=== PATIENT | female | born 1995 | race Caucasian/White ===

== ENCOUNTER → 2021-06-23 11:37 | Outpatient (BNVA) | payer BC, MEDICAID, SELFPAY | PROVIDERS: PCP Nurse Practitioner Family; Visit Provider Nurse Practitioner Family | DX: Z20.822 Contact with and (suspected) exposure to COVID-19 (principal); J06.9 Acute upper respiratory infection, unspecified | CPT/HCPCS: 87635 ==

== ENCOUNTER 2023-05-06 14:41 | Outpatient (CLI) | payer BC, MEDICAID, SELFPAY ==
[2023-05-06] VITALS (9 sets, daily range): BP systolic 113–119; BP diastolic 67–74; PULSE 44–78; RESP 16; BMI 31.6
[2023-05-06] MEDS: lactated ringers 1,000 ML 999 ML IV (15:28)
[2023-05-06 15:33] LABS: Add Urine Microscopic? NO; Charge for UA Resulting for Rev
[2023-05-06 15:36] LABS: Basophils % 0.2 %; Eosinophils # 0.1 10^3/uL (0.0-0.8); Eosinophils % 0.4 %; Hematocrit 33.4 % (37.0-47.0); Lymphocytes # 1.9 10^3/uL (0.8-4.8); Mean Corpuscular HGB Conc 32.9 g/dL (30.0-36.0); Mean Corpuscular Hemoglobin 28.6 pg (28.0-34.0); Mean Corpuscular Volume 86.8 fl (81-99); Mean Platelet Volume 9.8 fL (7.4-10.4); Monocytes # 0.8 10^3/uL (0.2-0.9); Monocytes % 6.3 %; Neutrophils # 9.92 10^3/uL (1.8-7.7); Neutrophils % 77.7 %; Nucleated Red Blood Cells % 0 %; Platelet Count 308 10^3/cmm (130-400); Red Blood Count 3.85 10^6/uL (4.1-5.3); White Blood Count 12.8 10^3/uL (4.0-10.0)
[2023-05-06 15:41] LABS: Protein Urine Neg (Negative); Specific Gravity, Urine 1.005 (1.005-1.030); Urine Appearance Clear (CLEAR); Urine Color Yellow (Yellow); pH Urine 8 (5-7)
[2023-05-06 15:42] LABS: Bilirubin Urine Neg (Negative); Blood Urine Neg (Negative); Glucose Urine UA Norm (Normal); Ketones Urine Negative (Negative); Leukocyte Esterase Urine Negative (Negative); Nitrate Urine Negative (Negative); Sulfosalicylic Acid Urine Negative (Negative); Urobilinogen Urine 1 mg/dL (Negative)
[2023-05-06 15:47] LABS: Amphetamines Screen Urine Negative (Negative); Barbiturates Screen Urine Negative (Negative); Benzodiazepines Screen Urine Negative (Negative); Cocaine Screen Urine Negative (Negative); Opiate Screen Urine Negative (Negative); PCP Screen Urine Negative (Negative); THC Screen Urine Negative (Negative)
[2023-05-06 15:59] LABS: Alanine Aminotransferase < 5 U/L (0-33); Albumin Level 3.2 g/dL (3.5-5.2); Alkaline Phosphatase 121 U/L (35-105); Anion Gap 12.7 (5-19); Aspartate Amino Transferase 10 U/L (0-32); Blood Urea Nitrogen 5 mg/dL (6-20); Calcium 8.3 mg/dL (8.5-10.5); Carbon Dioxide 23 mmol/L (22-29); Chloride 103 mmol/L (98-107); Globulin 3.1 g/dL (1.3-4.6); Glucose 89 mg/dL (65-115); Osmolality Calculated 277 mOsm/kg (285-295); Potassium 3.7 mmol/L (3.5-5.1); Sodium 135 mmol/L (136-145); Total Bilirubin 0.2 mg/dL (0.15-1.2); Total Protein 6.3 g/dL (6.6-8.7); Uric Acid 3.4 mg/dL (2.4-5.7)
[2023-05-06 16:00] LABS: Urine Creatinine 212 mg/dL (28-217); Urine Protein Random 17 mg/dL
[2023-05-06 16:01] LABS: Magnesium Level (OB Only) 1.9 mg/dL (5.0-7.5)
[2023-05-06 16:02] LABS: UPRO/UCREAT Ratio 0.08 mg/mg CR
== END 2023-05-06 16:25 | disposition home or self-care (01) ==
LOC: OPOB 14:47 → OBGYN 14:49
PROVIDERS: Family Medicine; PCP Nurse Practitioner Family; Visit Provider Family Medicine
DX: O26.899 Other specified pregnancy related conditions, unspecified trimester (principal); R51.9 Headache, unspecified; Z3A.00 Weeks of gestation of pregnancy not specified; H53.8 Other visual disturbances
CPT/HCPCS: 36415; 80053; 80306; 81003; 82570; 83735; 84156; 84550; 85025; 99211; J7120

== ENCOUNTER 2023-07-04 21:08 | Emergency (ER) | payer BC, MEDICAID, SELFPAY ==
[2023-07-04 21:15] VITALS: BP 120/76; PULSE 93; RESP 18; TEMP 36.7; O2SAT 97
--- NOTE | 2023-07-04 21:31 | ECG_ITS ---
[facility] Test Date: 2023-07-04 Pat Name: Margaret Ashton Department: Room: Gender: Female Educational Coordinator: : 1995 Requested By: Chacho Klein Order Number: [id number] Ghislaine MD: Nelson Kitchen M.D. Measurements Intervals [place] Rate: 66 P: 12 DE: 164 QRS: 26 QRSD: 86 T: 35 QT: 375 QTc: 394 Interpretive Statements SINUS RHYTHM WITH MARKED SINUS ARRHYTHMIA Compared to ECG 11/01/2017 22:08:28 Sinus tachycardia no longer present T-wave abnormality no longer present Electronically Signed On 07-05-2023 0:08:14 CDT by Nelson Kitchen M.D. [id number]
[2023-07-04 21:49] LABS: Basophils # 0.1 10^3/uL (0.0-0.1); Basophils % 0.5 %; Eosinophils # 0.2 10^3/uL (0.0-0.8); Eosinophils % 1.6 %; Hematocrit 35.6 % (36-47); Lymphocytes # 2.4 10^3/uL (0.8-4.8); Lymphocytes % 21.2 %; Mean Corpuscular HGB Conc 32.3 g/dL (30-55); Mean Corpuscular Volume 83.6 fl (85-98); Mean Platelet Volume 9.2 fL (7.4-10.4); Monocytes # 0.8 10^3/uL (0.2-0.9); Monocytes % 7.2 %; Neutrophils # 7.85 10^3/uL (1.8-7.7); Neutrophils % 69.3 %; Nucleated Red Blood Cells % 0 %; Platelet Count 390 10^3/cmm (157-399); Red Blood Count 4.26 10^6/uL (3.85-5.65); Red Cell Distribution Width 12.6 % (12.1-15.1); White Blood Count 11.32 10^3/uL (3.29-11.43)
--- NOTE | 2023-07-04 22:05 | W.ED.ABDPA2 ---
HPI - Abdominal Pain General: Chief Complaint: Abdominal Pain Stated Complaint: ABD Pain\Blurred Vision Time Seen by Provider: 07/04/23 21:27 History of Present Illness: Patient presents to the ER with complaints of bilateral lower abdominal pain right worse than left started 2 days ago. Patient 6 weeks out from . Incision has healed nicely. Patient saw her PCP today and urine samples were obtained and they were normal so she sent the patient over here for CT scan to rule out appendicitis. Review of Systems General: Reports: 10 or more systems reviewed and unremarkable except in HPI and below PFSH ED PFSH: Medical History Dental caries Major depressive disorder Physical Exam Const: COMMON NORMALS: no acute distress, average body habitus, patient oriented x3, no limitations, healthy appearing, alert and well nourished HENMT: COMMON NORMALS: normocephalic, atraumatic, hearing grossly normal bilaterally, external ears normal, Normal external nose present and moist oral mucous membranes HEAD & SCALP: normocephalic and atraumatic NOSE: Normal external nose present EXTERNAL EAR: Yes external ears normal Eye: COMMON NORMALS: Equal, round and reactive pupils present, EOMs intact bilaterally, conjunctivae normal and no scleral icterus CONJUNCTIVA: Yes conjunctivae normal PUPIL: Yes Equal, round and reactive pupils present Neck/C-Spine: COMMON NORMALS: full ROM, no lymphadenopathy, supple, no meningeal signs, no JVD and Thyroid normal THYROID: Thyroid normal Chest: COMMONS NORMALS: normal inspection of the chest and normal palpation of entire chest wall Resp: COMMON NORMALS: normal respiratory effort, No retractions, No use of accessory muscles and clear to auscultation bilaterally AUSCULTATION: clear to auscultation bilaterally Cardio: COMMON NORMALS: no JVD, regular rate, regular rhythm, S1 normal heart sound present, S2 normal heart sound present, No gallops present (Cardio), No clicks present (Cardio), No murmurs present (Cardio) and No rub (Cardio) RATE: regular rate RHYTHM: regular rhythm HEART SOUNDS: S1 normal heart sound present and S2 normal heart sound present GI: COMMON NORMALS: Normal to inspection, nondistended, normoactive bowel sounds present, Soft to palpation and No hepatosplenomegaly present; negative for non-tender (Tender to palpate bilateral lower quadrants right greater than left) PALPATION: Yes Soft to palpation and Yes No hepatosplenomegaly present : COMMON NORMALS: Yes no CVA tenderness BLADDER/KIDNEY EXAM: Yes no CVA tenderness Back/Pelvis: COMMON NORMALS: no CVA tenderness Neuro: COMMON NORMALS: patient oriented x3 SENSORIUM/ORIENTATION: Yes alert MENINGEAL SIGNS: Yes no meningeal signs Course Vital Signs: Vital signs: Vital Signs Temperature 98.0 F 07/04/23 21:15 Pulse Rate 93 07/04/23 21:15 Respiratory Rate 18 07/04/23 21:15 Blood Pressure 120/76 07/04/23 21:15 Pulse Oximetry 97 07/04/23 21:15 Oxygen Delivery Me thod Room Air 07/04/23 21:15 MDM - Abdominal Pain Medical Decision Making Patient was sent over here to rule out appendicitis. Lab work was obtained as well as CT scan all of which was essentially normal. Patient did declined to have CT contrast dye with her CT but her appendix was still well visualized. Patient be discharged home with a diagnosis of abdominal pain. Lab Data 07/04/23 21:41 07/04/23 21:41 Labs/Radiology: Radiology Impressions Abdomen/Pelvis CT 07/04/23 23:04 IMPRESSION: 1. No acute abdominopelvic findings. 2. Normal appendix Laboratory Results WBC 11.32 10^3/uL (3.29-11.43) 07/04/23 21:41 RBC 4.26 10^6/uL (3.85-5.65) 07/04/23 21:41 Hgb 11.50 g/dL (11.27-16.99) 07/04/23 21:41 Hct 35.6 % (36-47) L 07/04/23 21:41 MCV 83.6 fl (85-98) L 07/04/23 21:41 MCH 27.0 pg (27-33) 07/04/23 21:41 MCHC 32.3 g/dL (30-55) 07/04/23 21:41 RDW 12.6 % (12.1-15.1) 07/04/23 21:41 Plt Count 390 10^3/cmm (157-399) 07/04/23 21:41 MPV 9.2 fL (7.4-10.4) 07/04/23 21:41 Neut % (Auto) 69.3 % 07/04/23 21:41 Lymph % (Auto) 21.2 % 07/04/23 21:41 [place] % (Auto) 7.2 % 07/04/23 21:41 Eos % (Auto) 1.6 % 07/04/23 21:41 Baso % (Auto) 0.5 % 07/04/23 21:41 Neut # (Auto) 7.85 10^3/uL (1.8-7.7) H 07/04/23 21:41 Lymph # (Auto) 2.4 10^3/uL (0.8-4.8) 07/04/23 21:41 [place] # (Auto) 0.8 10^3/uL (0.2-0.9) 07/04/23 21:41 Eos # (Auto) 0.2 10^3/uL (0.0-0.8) 07/04/23 21:41 Baso # (Auto) 0.1 10^3/uL (0.0-0.1) 07/04/23 21:41 Nucleated RBC % (auto) 0 % 07/04/23 21:41 Nucleated RBCs # 0.0 /100WBC 07/04/23 21:41 Sodium 136 mmol/L (136-145) 07/04/23 21:41 Potassium 3.9 mmol/L (3.5-5.1) 07/04/23 21:41 Chloride 101 mmol/L (98-107) 07/04/23 21:41 Carbon Dioxide 26 mmol/L (22-29) 07/04/23 21:41 Anion Gap 12.9 (5-19) 07/04/23 21:41 BUN 16 mg/dL (6-20) 07/04/23 21:41 Creatinine 0.5 mg/dL (0.5-0.9) 07/04/23 21:41 GFR Calculation 148.0 mL/min (90-130) H 07/04/23 21:41 Glucose 91 mg/dL (65-115) 07/04/23 21:41 Calculated Osmolality 283 mOsm/kg (285-295) L 07/04/23 21:41 Calcium 9.5 mg/dL (8.5-10.5) 07/04/23 21:41 Magnesium 2.1 mg/dL (1.7-2.3) 07/04/23 21:41 Total Bilirubin 0.2 mg/dL (0.15-1.2) 07/04/23 21:41 AST 16 U/L (0-32) 07/04/23 21:41 ALT 23 U/L (0-33) 07/04/23 21:41 Alkaline Phosphatase 139 U/L (35-105) H 07/04/23 21:41 Total Protein 7.6 g/dL (6.6-8.7) 07/04/23 21:41 Albumin 4.5 g/dL (3.5-5.2) 07/04/23 21:41 Globulin 3.1 g/dL (1.3-4.6) 07/04/23 21:41 Lipase 25 U/L (13-60) 07/04/23 21:41 HCG, Qual Negative (Negative) 07/04/23 22:11 Urine Color Yellow (Yellow) 07/04/23 22:08 Urine Appearance Clear (CLEAR) 07/04/23 22:08 Urine pH 6 (5-7) 07/04/23 22:08 Ur Specific [place] 1.015 (1.005-1.030) 07/04/23 22:08 Urine Protein Neg (Negative) 07/04/23 22:08 Urine Glucose (UA) Norm (Normal) 07/04/23 22:08 Urine Ketones Negative (Negative) 07/04/23 22:08 Urine Blood Neg (Negative) 07/04/23 22:08 Urine Nitrate Negative (Negative) 07/04/23 22:08 Urine Bilirubin Neg (Negative) 07/04/23 22:08 Urine Urobilinogen Neg mg/dL (Negative) 07/04/23 22:08 Ur Leukocyte Esterase Negative (Negative) 07/04/23 22:08 EKG Data EKG 1: I personally reviewed and interpreted this EKG as follows: EKG interpretation date: 07/04/23 EKG interpretation time: 21:55 Prior EKG tracings: not available for review Interpretation: EKG showed ventricular rate 66 bpm, NV interval 164, QRS duration 86, QTc 388, sinus rhythm with marked sinus arrhythmia, no ST-T wave changes Discharge Plan Discharge Patient Disposition: Home Clinical Impression: Abdominal pain Qualifiers: Abdominal location: lower abdomen, unspecified Qualified Code(s): R10.30 - Lower abdominal pain, unspecified Condition: Stable Prescriptions: No Action buspirone 5 mg tablet 5 mg PO TID acetaminophen [Tylenol Ex Str Rapid Release] 500 mg Tablet 1,000 mg PO Q6H PRN (Reason: Pain) albuterol sulfate 90 mcg/actuation Hfa Aerosol Inhaler 2 puff INHALATION QID PRN (Reason: Shortness Of Breath) PNV cmb#95-ferrous fumarate-FA [ Multivitamins] 28 mg iron- 800 mcg Tablet 2 tab PO BID Discharge Orders: Discharge ED (Routine); Ordered 07/04/23 Ordered By: Chacho Klein Patient Instructions: Abdominal Pain (ED) Activity Restrictions/Additional Instructions: Please take fexo-hef-pennofp Tylenol Motrin as needed for your pain. Please follow-up with your family practice physician within the next 7 days for further evaluation and treatment. Coding Level of Care Code ED Regional Climate Change Analyst for Taj Deshpande
[2023-07-04 22:13] LABS: Alanine Aminotransferase 23 U/L (0-33); Albumin Level 4.5 g/dL (3.5-5.2); Alkaline Phosphatase 139 U/L (35-105); Anion Gap 12.9 (5-19); Aspartate Amino Transferase 16 U/L (0-32); Blood Urea Nitrogen 16 mg/dL (6-20); Calcium 9.5 mg/dL (8.5-10.5); Carbon Dioxide 26 mmol/L (22-29); Chloride 101 mmol/L (98-107); Globulin 3.1 g/dL (1.3-4.6); Glucose 91 mg/dL (65-115); Lipase 25 U/L (13-60); Magnesium 2.1 mg/dL (1.7-2.3); Osmolality Calculated 283 mOsm/kg (285-295); Potassium 3.9 mmol/L (3.5-5.1); Sodium 136 mmol/L (136-145); Total Bilirubin 0.2 mg/dL (0.15-1.2); Total Protein 7.6 g/dL (6.6-8.7)
[2023-07-04 22:16] LABS: Add Urine Microscopic? NO; Charge for UA Resulting for Rev
[2023-07-04 22:30] LABS: Bilirubin Urine Neg (Negative); Blood Urine Neg (Negative); Glucose Urine UA Norm (Normal); Ketones Urine Negative (Negative); Leukocyte Esterase Urine Negative (Negative); Nitrate Urine Negative (Negative); Protein Urine Neg (Negative); Specific Gravity, Urine 1.015 (1.005-1.030); Urine Appearance Clear (CLEAR); Urine Color Yellow (Yellow); Urobilinogen Urine Neg (Negative); pH Urine 6 (5-7)
[2023-07-04 22:30] LABS: HCG Qualitative Urine. Negative (Negative)
--- NOTE | 2023-07-04 23:04 | CTR_ITS ---
PROCEDURE INFORMATION: Exam: CT Abdomen And Pelvis Without Contrast Exam date and time: 07/04/2023 11:11 PM Age: 27 years old Clinical indication: Abdominal pain; Localized; Patient HX: Lower abd pain since yesterday, patient refuses contrast; Additional info: Rule out appendicitis TECHNIQUE: Imaging protocol: Computed tomography of the abdomen and pelvis without contrast. Radiation optimization: All CT scans at this facility use at least one of these dose optimization techniques: automated exposure control; mA and/or kV adjustment per patient size (includes targeted exams where dose is matched to clinical indication); or iterative reconstruction. REPORTING DATA: Count of CT and Cardiac NM exams in prior 12 months: This patient has received 0 known CTs and 0 known cardiac nuclear medicine studies in the 12 months prior to the current study. COMPARISON: CR XR chest 1V [id number] 11/01/2017 10:31 PM RADIATION DOSE METRICS: Total DLP (mGy-cm): 663.07 FINDINGS: Lungs: The lung bases are clear. Incidental calcified granuloma in the left lower lobe. Liver: Normal. No mass. Gallbladder and bile ducts: The gallbladder is small and unremarkable. Pancreas: Normal. No ductal dilation. Spleen: Normal. No splenomegaly. Adrenal glands: Normal. No mass. Kidneys and ureters: No renal stones or obstruction. No perinephric stranding. Stomach and bowel: Unremarkable. No obstruction. No mucosal thickening. Appendix: The appendix is well seen and is normal. Intraperitoneal space: No free fluid, free air or abscess. Vasculature: Unremarkable. No abdominal aortic aneurysm. Lymph nodes: Unremarkable. No enlarged lymph nodes. Urinary bladder: Unremarkable as visualized. Reproductive: The uterus is retroverted but otherwise unremarkable. Ovaries are normal for age. Bones/joints: Unremarkable. No acute fracture. Soft tissues: Unremarkable. CT/CT abdomen pelvis wo con [id number] IMPRESSION: 1. No acute abdominopelvic findings. 2. Normal appendix
[2023-07-05 00:06] VITALS: BP 120/76; PULSE 93; RESP 18; TEMP 36.7; O2SAT 97
== END 2023-07-05 00:08 | disposition home or self-care (01) ==
PROVIDERS: Emergency Provider Emergency Medicine
DX: R10.30 Lower abdominal pain, unspecified (principal)
CPT/HCPCS: 74176; 80053; 81003; 81025; 83690; 83735; 85025; 93005; 99284

== ENCOUNTER 2024-10-27 03:46 | Emergency (ER) | payer BC, MEDICAID, SELFPAY ==
[2024-10-27 03:48] VITALS: BP 115/65; PULSE 66; RESP 16; TEMP 36.4; O2SAT 99; BMI 33.1
--- NOTE | 2024-10-27 03:48 | ECG_ITS ---
[facility] Test Date: 2024-10-27 Pat Name: Margaret Ashton Department: Room: Gender: Female Assistant Therapy Aide: : 1995 Requested By: Marcin Segovia Order Number: [id number] Ghislaine MD: Khalif Kwon M.D. Measurements Intervals [place] Rate: 68 P: 15 [place]: 171 QRS: 49 QRSD: 89 T: 52 QT: 383 QTc: 410 Interpretive Statements SINUS RHYTHM Early repolarization changes in the inferior and anterolateral leads Compared to ECG 07/04/2023 21:55:40 Sinus arrhythmia no longer present Electronically Signed On 10-27-2024 13:29:51 [place] by Khalif Kwon M.D. [id number]
--- NOTE | 2024-10-27 04:08 | CTR_ITS ---
PROCEDURE INFORMATION: Exam: CT Pelvis Without Contrast, Skeleton Exam date and time: 10/27/2024 4:29 AM Age: 28 years old Clinical indication: Injury or trauma; Fall; Blunt trauma (contusions or hematomas); Does not apply; Sacrum; Prior surgery; Surgery date: 6+ months; Surgery type: Csection; Patient HX: Patient slipped and fell walking down ice covered steps. C/O severe sacral pain. ; Additional info: Fall sacral, pelvic pain TECHNIQUE: Imaging protocol: Computed tomography of the pelvis without contrast. Exam focused on the skeleton. Radiation optimization: All CT scans at this facility use at least one of these dose optimization techniques: automated exposure control; mA and/or kV adjustment per patient size (includes targeted exams where dose is matched to clinical indication); or iterative reconstruction. COMPARISON: CT abdomen pelvis wo con [id number] 07/04/2023 11:11 PM RADIATION DOSE METRICS: Total DLP (mGy-cm): 574.25 FINDINGS: Bones/joints: Unremarkable. No acute fracture. No dislocation. Soft tissues: Unremarkable. CT/CT bony pelvis [id number] IMPRESSION: No acute findings.
--- NOTE | 2024-10-27 04:08 | CTR_ITS ---
PROCEDURE INFORMATION: Exam: CT Head Without Contrast Exam date and time: 10/27/2024 4:27 AM Age: 28 years old Clinical indication: Injury or trauma; Fall; Blunt trauma (contusions or hematomas); Patient HX: Patient slipped and fell walking down ice covered steps which induced seizure. ; Additional info: Fall seizure TECHNIQUE: Imaging protocol: Computed tomography of the head without contrast. Radiation optimization: All CT scans at this facility use at least one of these dose optimization techniques: automated exposure control; mA and/or kV adjustment per patient size (includes targeted exams where dose is matched to clinical indication); or iterative reconstruction. COMPARISON: No relevant prior studies available. RADIATION DOSE METRICS: Total DLP (mGy-cm): 1067.88 FINDINGS: Brain: Normal. No hemorrhage. Unremarkable white matter. No mass effect. Cerebral ventricles: No ventriculomegaly. Paranasal sinuses: Visualized sinuses are unremarkable. No fluid levels. Mastoid air cells: Visualized mastoid air cells are well aerated. Bones: Unremarkable. No acute fracture. Soft tissues: Unremarkable. CT/CT head wo con* [id number] IMPRESSION: No acute intracranial abnormality.
[2024-10-27 04:17] LABS: Basophils # 0.1 10^3/uL (0.0-0.1); Basophils % 0.6 %; Eosinophils # 0.1 10^3/uL (0.0-0.8); Eosinophils % 1.2 %; Hematocrit 35.9 % (36-47); Lymphocytes # 2.4 10^3/uL (0.8-4.8); Lymphocytes % 28.5 %; Mean Corpuscular HGB Conc 31.8 g/dL (30-55); Mean Corpuscular Hemoglobin 26.5 pg (27-33); Mean Corpuscular Volume 83.5 fl (85-98); Mean Platelet Volume 10.2 fL (7.4-10.4); Monocytes # 0.5 10^3/uL (0.2-0.9); Monocytes % 5.4 %; Neutrophils # 5.29 10^3/uL (1.8-7.7); Neutrophils % 63.8 %; Nucleated Red Blood Cells % 0 %; Platelet Count 346 10^3/cmm (157-399); Red Cell Distribution Width 13.1 % (12.1-15.1); White Blood Count 8.29 10^3/uL (3.29-11.43)
[2024-10-27 04:24] LABS: HCG, Serum Qual Negative (Negative)
[2024-10-27 04:25] LABS: Alanine Aminotransferase 28 U/L (0-33); Albumin Level 4.2 g/dL (3.5-5.2); Aspartate Amino Transferase 22 U/L (0-32); Creatine Phosphokinase 73 U/L (26-192); Glucose 87 mg/dL (65-115); Potassium 3.7 mmol/L (3.5-5.1); Sodium 139 mmol/L (136-145)
[2024-10-27 04:31] LABS: Alcohol Level < 10 mg/dL (0-10); Alkaline Phosphatase 134 U/L (35-105); Anion Gap 23.7 (5-19); Blood Urea Nitrogen 15 mg/dL (6-20); C Reactive Protein 25.8 mg/L (0.0-4.9); Calcium 8.9 mg/dL (8.5-10.5); Carbon Dioxide 24 mmol/L (22-29); Chloride 96 mmol/L (98-107); Creatinine Clr Calc Pharmacy 112.1198; Glomerular Filtration Rate 85.4 mL/min (90-130); Magnesium 1.9 mg/dL (1.7-2.3); Osmolality Calculated 290 mOsm/kg (285-295); Total Bilirubin 0.2 mg/dL (0.15-1.2); Total Protein 7.1 g/dL (6.6-8.7)
--- NOTE | 2024-10-27 04:39 | W.ED.FALL ---
HPI - Fall General: Chief Complaint: Fall Stated Complaint: FALL Time Seen by Provider: 10/27/24 04:07 History of Present Illness: 28-year-old female with a history of seizure. She presents after a fall down 3 stairs, striking her left pelvis and hip posteriorly. She had intense pain following this. When she stood up, she realized the pain worsened, and she sat back down. Following this, she had a seizure lasting 1 to 3 minutes she says. She does not believe she hit her head but is not sure. She does have a headache. She was well prior to falling. She did not lose control of her bladder, or bite her tongue. Related Data Previous Rx's Medication Instructions Recorded azithromycin 500 mg tablet 500 mg PO DAILY 5 days #5 tabs 05/17/24 (Zithromax) cetirizine 10 mg tablet (Zyrtec) 10 mg PO DAILY #30 tabs 05/17/24 fluticasone propionate 50 2 spray intranasal BID allergy 05/17/24 mcg/actuation nasal symptoms #16 grams spray,suspension (Flonase Allergy Relief) hydrocodone 5 mg-acetaminophen 325 1 tab PO Q8H PRN pain #7 tabs 10/27/24 mg tablet ketorolac 10 mg tablet 10 mg PO TID PRN pain #10 tabs 10/27/24 Allergies Allergy/AdvReac Type Severity Reaction Status Date / Time Latex, Natural Rubber Allergy Unknown Unverified 05/17/24 13:55 Penicillins Allergy Unknown Verified 05/17/24 13:55 [facility] ED PFSH: Medical History Dental caries Major depressive disorder Social History Smoking and tobacco/nicotine status: unknown if used tobacco/nicotine Physical Exam Const: COMMON NORMALS: no acute distress and alert GENERAL APPEARANCE: cooperative; not ill appearing and not frail appearing ORIENTATION/CONSCIOUSNESS: Yes oriented to person, Yes oriented to place and Yes oriented to time HENMT: COMMON NORMALS: normocephalic, atraumatic and Normal external nose present HEAD & SCALP: normocephalic and atraumatic FACE & SINUS: normal facial exam and face symmetric NOSE: Normal external nose present Eye: COMMON NORMALS: Equal, round and reactive pupils present and EOMs intact bilaterally PUPIL: Yes Equal, round and reactive pupils present Neck/C-Spine: GENERAL: Yes trachea midline Chest: CHEST: Yes Symmetrical chest wall rise Resp: COMMON NORMALS: normal respiratory effort, No retractions, No use of accessory muscles and clear to auscultation bilaterally AUSCULTATION: clear to auscultation bilaterally Cardio: COMMON NORMALS: regular rate and regular rhythm RATE: regular rate RHYTHM: regular rhythm GI: COMMON NORMALS: Normal to inspection, nondistended, normoactive bowel sounds present Back/Pelvis: OTHER: Exam the left lower extremity reveals tenderness to the posterior hip, and ileum. No thigh tenderness. No lumbar midline tenderness. Straight leg raise testing is negative for radicular pain. Extremity: COMMON NORMALS: no pedal edema Neuro: JOANNE COMA SCALE: document GCS findings [place] coma scale eye opening: Spontaneous [place] coma scale verbal response: Orientated Joanne coma scale motor response: Obey commands Joanne coma scale total score: 15 COMMON NORMALS: CN's II-XII intact bilaterally and no focal motor deficits SENSORIUM/ORIENTATION: Yes alert, Yes oriented to person, Yes oriented to place and Yes oriented to time SENSORY EXAM: Yes extremities (intact) Psych: COMMON NORMALS: speech normal SPEECH: Yes normal speech Skin: COMMON NORMALS: no rashes or lesions noted GENERAL SKIN EXAM: no rashes or lesions noted Course Vital Signs: Vital signs: Vital Signs Temperature 97.6 F 10/27/24 03:48 Pulse Rate 66 10/27/24 03:48 Respiratory Rate 16 10/27/24 03:48 Blood Pressure 115/65 10/27/24 03:48 Pulse Oximetry 99 10/27/24 03:48 Oxygen Delivery Me thod Room Air 10/27/24 03:48 MDM - Fall Medical Decision Making 28-year-old patient who fell and has left hip and pelvis pain. She also had a seizure. CBC and BMP are benign. CRP is mildly elevated. hCG is negative. Alcohol is nondetectable. CT of the head and pelvis are pending. Lactic acid is normal. No episodes of seizure here. Head CT is negative by my read. Bony pelvis CT shows soft tissue contusion over the left posterior hip, without fracture or other abnormality. She will be discharged. Lab Data 10/27/24 03:10 10/27/24 03:[address] 10/27/24 04:08 IMPRESSION: No acute intracranial abnormality. Pelvis CT 10/27/24 04:08 IMPRESSION: No acute findings. Laboratory Results WBC 8.29 10^3/uL (3.29-11.43) 10/27/24 03:10 RBC 4.30 10^6/uL (3.85-5.65) 10/27/24 03:10 Hgb 11.40 g/dL (11.27-16.99) 10/27/24 03:10 Hct 35.9 % (36-47) L 10/27/24 03:10 MCV 83.5 fl (85-98) L 10/27/24 03:10 MCH 26.5 pg (27-33) L 10/27/24 03:10 MCHC 31.8 g/dL (30-55) 10/27/24 03:10 RDW 13.1 % (12.1-15.1) 10/27/24 03:10 Plt Count 346 10^3/cmm (157-399) 10/27/24 03:10 MPV 10.2 fL (7.4-10.4) 10/27/24 03:10 Neut % (Auto) 63.8 % 10/27/24 03:10 Lymph % (Auto) 28.5 % 10/27/24 03:10 [place] % (Auto) 5.4 % 10/27/24 03:10 Eos % (Auto) 1.2 % 10/27/24 03:10 Baso % (Auto) 0.6 % 10/27/24 03:10 Neut # (Auto) 5.29 10^3/uL (1.8-7.7) 10/27/24 03:10 Lymph # (Auto) 2.4 10^3/uL (0.8-4.8) 10/27/24 03:10 [place] # (Auto) 0.5 10^3/uL (0.2-0.9) 10/27/24 03:10 Eos # (Auto) 0.1 10^3/uL (0.0-0.8) 10/27/24 03:10 Baso # (Auto) 0.1 10^3/uL (0.0-0.1) 10/27/24 03:10 Nucleated RBC % (auto) 0 % 10/27/24 03:10 Nucleated RBCs # 0.0 /100WBC 10/27/24 03:10 Sodium 139 mmol/L (136-145) 10/27/24 03:10 Potassium 3.7 mmol/L (3.5-5.1) 10/27/24 03:10 Chloride 96 mmol/L (98-107) L 10/27/24 03:10 Carbon Dioxide 24 mmol/L (22-29) 10/27/24 03:10 Anion Gap 23.7 (5-19) H 10/27/24 03:10 BUN 15 mg/dL (6-20) 10/27/24 03:10 Creatinine 0.8 mg/dL (0.5-0.9) 10/27/24 03:10 GFR Calculation 85.4 mL/min (90-130) L 10/27/24 03:10 Glucose 87 mg/dL (65-115) 10/27/24 03:10 Calculated Osmolality 290 mOsm/kg (285-295) 10/27/24 03:10 Lactic Acid 1.0 mmol/L (0.5-2.2) 10/27/24 04:46 Calcium 8.9 mg/dL (8.5-10.5) 10/27/24 03:10 Phosphorus 2.9 mg/dL (2.5-4.5) 10/27/24 03:10 Magnesium 1.9 mg/dL (1.7-2.3) 10/27/24 03:10 Total Bilirubin 0.2 mg/dL (0.15-1.2) 10/27/24 03:10 AST 22 U/L (0-32) 10/27/24 03:10 ALT 28 U/L (0-33) 10/27/24 03:10 Alkaline Phosphatase 134 U/L (35-105) H 10/27/24 03:10 Creatine Kinase 73 U/L (26-192) 10/27/24 03:10 C-Reactive Protein 25.8 mg/L (0.0-4.9) H 10/27/24 03:10 Total Protein 7.1 g/dL (6.6-8.7) 10/27/24 03:10 Albumin 4.2 g/dL (3.5-5.2) 10/27/24 03:10 Globulin 3.0 g/dL (1.3-4.6) 10/27/24 03:10 HCG, Qual Negative (Negative) 10/27/24 03:10 Ethyl Alcohol < 10 mg/dL (0-10) 10/27/24 03:10 XR interpretation done by ED provider, pending radiology final review Discharge Plan Discharge Patient Disposition: Home Clinical Impression: Contusion of hip, left Condition: Stable Prescriptions: New hydrocodone-acetaminophen 5-325 mg tablet 1 tab PO Q8H PRN (Reason: pain) Qty: 7 0RF ketorolac 10 mg tablet 10 mg PO TID PRN (Reason: pain) Qty: 10 0RF No Action azithromycin [Zithromax] 500 mg tablet 500 mg PO DAILY 5 Days Qty: 5 0RF fluticasone propionate [Flonase Allergy Relief] 50 mcg/actuation spray,suspension 2 spray intranasal BID Qty: 16 0RF Rx Instructions: administer into each nostril cetirizine [Zyrtec] 10 mg tablet 10 mg PO DAILY Qty: 30 0RF Discharge Orders: Discharge ED (Routine); Ordered 10/27/24 Ordered By: Marcin Tong Patient Instructions: Hip Contusion (ED), Opioid Safety, Pain Management Activity Restrictions/Additional Instructions: Return for repeated episodes of seizure or passing out, worsening pain despite treatment, vomiting, fever, other concerning symptoms. Alternate pain medications as directed. Ice may help as well. See your doctor this week. Stand Alone Forms: Work/School Release Coding Level of Care Code ED Mountain Guide for Taj Deshpande
[2024-10-27 04:54] LABS: Phosphorus 2.9 mg/dL (2.5-4.5)
== END 2024-10-27 06:13 | disposition home or self-care (01) ==
PROVIDERS: Emergency Provider Emergency Medicine
DX: S70.02XA Contusion of left hip, initial encounter (principal); W10.9XXA Fall (on) (from) unspecified stairs and steps, initial encounter
CPT/HCPCS: 36415; 70450; 72192; 80053; 80307; 82550; 83605; 83735; 84100; 84703; 85025; 86140; 93005; 99284